=== PATIENT | male | born 1970 | race Caucasian/White ===

== ENCOUNTER 2016-07-13 22:37 | Emergency (ER) | payer MEDICAID, OTHER ==
[2016-07-13] MEDS ORDERED: HYDROmorphone HCL 1 MG/ML SYRINGE (J1170) As Ordered ONE (22:57)
[2016-07-13] MEDS ORDERED: ONDANSETRON 4MG/2ML VIAL (J2405) As Ordered ONE (22:57)
[2016-07-13 23:27] LABS: BASO # 0.2 K/mm3 (0.0-0.2); BASO % 1.1 % (0.0-1.0); EOS # 0.4 K/mm3 (0.0-0.50); EOS % 2.1 % (0.0-3.0); LARGE UNSTAINED CELL # 0.2 K/mm3 (0.0-0.4); LARGE UNSTAINED CELL % 0.9 % (0.0-4.0); LYMPH % 4.8 % (24.0-44.0); MEAN CORPUSCULAR HEMOGLOBIN 28.9 pg (27.0-33.0); MEAN CORPUSCULAR HGB CONC 34.2 g/dl (32.0-36.5); MEAN CORPUSCULAR VOLUME 84.5 fl (80.0-96.0); MONO # 0.8 K/mm3 (0.0-0.8); MONO % 4.7 % (0.0-5.0); NEUTROPHILS # 15.4 K/mm3 (1.8-7.7); NEUTROPHILS % 86.3 % (36.0-66.0); PLATELET COUNT, AUTOMATED 249 k/mm3 (150-450); RED CELL DISTRIBUTION WIDTH 14.1 % (11.5-14.5); WHITE BLOOD COUNT 17.8 K/mm3 (4.0-10.0)
[2016-07-13 23:42] LABS: ANION GAP 9 MEQ/L (8-16); BLOOD UREA NITROGEN 28 MG/DL (7-18); CALCIUM LEVEL 8.2 MG/DL (8.5-10.1); CARBON DIOXIDE LEVEL 28 MEQ/L (21-32); CHLORIDE LEVEL 101 MEQ/L (98-107); CREATININE FOR GFR 1.21 MG/DL (0.70-1.30); GLOMERULAR FILTRATION RATE > 60.0 (>60); GLUCOSE, FASTING 122 MG/DL (70-105); POTASSIUM SERUM 3.8 MEQ/L (3.5-5.1); SODIUM LEVEL 138 MEQ/L (136-145)
[2016-07-13 23:44] LABS: ALBUMIN 3.7 GM/DL (3.2-5.2); ALBUMIN/GLOBULIN RATIO 0.97 (1.00-1.93); BILIRUBIN,DIRECT 0.2 MG/DL (0.0-0.2); BILIRUBIN,TOTAL 0.5 MG/DL (0.2-1.0); TOTAL PROTEIN 7.5 GM/DL (6.4-8.2)
--- NOTE | 2016-07-13 23:50 | REPUSA ---
CLINICAL HISTORY: Abdominal pain TECHNIQUE: CT of the abdomen and pelvis was performed without intravenous contrast by obtaining yvrose guous CT axial slices from level of the heart to the proximal femoral diaphyses. Multiplanar reformat s were obtained in the coronal and sagittal projections. COMPARISON: None FINDINGS : LOWER CHEST: The lung bases demonstrate lingular atelectasis otherwise are unremarkable. Heart is nor mal in size. No pleural or pericardial effusion is seen. LIVER: The liver is normal in size and contour. BILIARY SYSTEM: No intrahepatic biliary ductal dilatation is seen. The common duct is normal in calib er. The gallbladder is unremarkable with no focal or diffuse wall thickening seen. No pericholecystic fluid is seen. No calcified biliary calculi are identified. PANCREAS: The pancreas is normal in size, contour and density. No suspicious cystic lesion or ductal dilatation. SPLEEN: Normal in size with no suspicious cystic lesion. ADRENALS: The adrenal glands are unremarkable. KIDNEYS/URETERS: The kidneys are normal in size. No calcified renal or ureteral calculi are seen. No suspicious cystic lesion or hydronephrosis. The ureters are not dilated. URINARY BLADDER: The urinary bladder is unremarkable without calcified stone, wall thickening or dive rticula seen. PROSTATE/SEMINAL VESICLES: Prostate measures 3.7 x 4.1 cm. Seminal vesicles unremarkable. AORTA AND ILIAC ARTERIES: No aneurysmal dilatation of the aorta or iliac arteries is seen. LYMPH NODES: No enlarged adenopathy. Lower mesentery calcified nodule likely postinflammatory node or granulomatous. GASTROINTESTINAL: Stomach, duodenum and bowel normal in caliber with no abnormal dilatation, stenosis , or wall thickening. PERITONEUM/RETROPERITONEUM: No ascites or suspicious fluid collection, extraluminal air, or suspiciou s mass. ABDOMINAL/PELVIC WALL: No hernia is identified. OSSEOUS STRUCTURES/SOFT TISSUES: No suspicious osseous lesion, acute fracture, or soft tissue abnorma lity. IMPRESSION : Mild prostatomegaly otherwise no acute intra-abdominal pelvic abnormality identified
[2016-07-14] MEDS ORDERED: KETOROLAC 30 MG/ML VIAL (J1885) As Ordered ONE (00:32)
[2016-07-14] MEDS ORDERED: CYCLOBENZAPRINE 10 MG TAB As Ordered ONE (01:34)
--- NOTE | 2016-07-14 01:44 | EDDOCDS ---
Nurse's Notes [facility] Name: Stef Lugo Age: 45 yrs Sex: Male : 1970 Arrival Date: 07/13/2016 Time: 22:37 Bed 18 Private MD: Giorgio Tam H Diagnosis: Abdominal and pelvic pain Presentation: 07/13 22:44 Presenting complaint: EMS states: sharp pain to left lower quadrant, +n/v. pain af2 aggravated by movement. started yesterday. Adult Sepsis Screening: The patient does not have new or worsening altered mentation. Patient has a respiratory rate of greater than or equal to 22 (1 point). Systolic blood pressure is greater than 100. Patient has a qSOFA score of 1- Negative Sepsis Screen. Suicide/Homicide risk assessment- the patient denies having any suicidal and/or homicidal ideations and does not present with any other emotional, behavioral or mental health complaints. Status: Patient is not a administrative services specialist or dependent. Transition of care: patient was not received from another setting of care. 22:44 Acuity: SUSANA Level 2 af2 22:44 Method Of Arrival: Ambulance af2 Triage Assessment: 22:55 General: Appears in no apparent distress, Behavior is cooperative. Pain: Location: af2 abdomen Pain currently is 6 out of 10 on a pain scale. Pt Declines HIV testing. Respiratory: Airway is patent Respiratory effort is even, unlabored. GI: Abdomen is non- distended obese, Bowel sounds present X 4 quads. Reports lower abdominal pain, nausea, vomiting. Derm: Skin is normal. Historical: - Allergies: Indomethacin (Vomit, Hives); cortisone injection (Hives, Anaphylaxis); PENICILLINS (Hives, Anaphylaxis); - Home Meds: 1. albuterol sulfate 90 mcg/actuation Inhl HFAA every 4 hours 2. albuterol sulfate 2.5 mg /3 mL (0.083 %) Nebulizer nebu 3 mL every 6 hours 3. allopurinol 300 mg Oral tab once daily 4. amlodipine 10 mg Oral tab 1 tab once daily 5. beclomethasone dipropionate 80 mcg/actuation inhalation aero 2 puffs 2 times per day 6. Calcium + Vitamin D Oral 600 mg daily 7. epinephrine 0.3 mg/0.3 mL (1:1,000) injection atIn 8. tiotropium bromide inhalation 2 puffs once daily 9. spironolactone 100 mg Oral tab 1 tab once daily 10. Symbicort 160-4.5 mcg/actuation inhalation HFAA 2 puffs 2 times per day 11. prednisone 2.5 mg Oral tab 1 tab once daily 12. potassium chloride 10 mEq Oral cpER 1 cap once daily 13. [place] 5-325 mg Oral tab every 4 hours 14. montelukast 10 mg oral tab once daily 15. loratadine 10 mg Oral tab - PMHx: Asthma; Gout; Hypertension; - PSHx: Tonsillectomy; right shoulder surgery; left knee bilateral release of patella; - Social history: Smoking status: Chewing Tobacco No barriers to communication noted, The patient speaks fluent P[place]. - Family history: Not pertinent. - : The pt / caregiver states he / she is not on anticoagulants. Home medication list is obtained from the patient. - Exposure Risk Screening:: None identified. Screenin/12 01:27 Screening information is obtained from the patient. Fall risk: No risks identified. af2 Assistance ADL's: requires no assistance with activities of daily living. Abuse/DV Screen: The patient / caregiver reports he/she is: not in a situation that causes fear, pain or injury. Nutritional screening: No deficits noted. Advance Directives: There is no active DNR order. home support is adequate. Assessment: 07/13 23:03 General: Appears in no apparent distress, Behavior is appropriate for age, cooperative. af2 Neurological: Level of Consciousness is awake, alert, Oriented to person, place, time. GI: Abdomen is obese, Abd is soft and non tender X 4 quads. GI: Reports Pain is 6 out of 10 on a pain scale. : No deficits noted. 07/14 00:00 General: Appears in no apparent distress, Behavior is appropriate for age, cooperative, af2 pt resting quietly on stretcher with eyes closed.. Respiratory: Airway is patent Respiratory effort is even, unlabored. GI: Reports lower abdominal pain. Derm: Skin is normal. 01:26 General: Appears in no apparent distress, Behavior is appropriate for age, cooperative. af2 Neurological: Level of Consciousness is awake, alert, Oriented to person, place, time. Respiratory: Airway is patent Respiratory effort is even, unlabored. Derm: Skin is normal. 01:43 GI: No deficits noted. af2 Vital Signs: 07/13 22:43 BP 154 / 98 RA Sitting (auto/reg); Pulse 121 MON; Resp 24 S; Temp 98.8(TE); Pulse Ox cln 95% on R/A; Weight 140.61 kg (R); Height 6 ft. 3 in. (190.50 cm) (R); Pain 03/12; 07/14 01:16 BP 124 / 86; Pulse 107; Resp 20; Temp 98.9(TE); Pulse Ox 95% on R/A; Pain 07/12; jade 07/13 22:43 Body Mass Index 38.75 (140.61 kg, 190.50 cm) cln Vitals: 01:43 Log In Time N/A - ambulance arrival. af2 ED Course: 07/13 22:37 Patient visited by Dean Grady, Knifer Up. ml3 22:37 Patient moved to Waiting ml3 22:38 Giorgio Tam is Private Physician. ml3 22:38 Bronwyn Joshi RN is Primary Nurse. ml3 22:38 Michelle Purcell RN is Primary Nurse. ml3 22:38 Maricruz Dalal MD is Attending Physician. fg 22:38 Patient visited by Maricruz Dalal MD. fg 22:38 Patient moved to 18 ml3 22:44 Patient visited by Judit Tse PCA. cln 22:44 Pt greeted and oriented to ED. Patient advised of names of staff involved in care, cln location of call fink, wait times and NPO status. Accompanied by Significant Other, Patient has correct armband on for positive identification. Placed in gown. Bed in low position. Call light in reach. Side rails up X 1. 22:46 Patient visited by Michelle Purcell RN. af2 22:46 Triage Initiated af2 22:55 CBC with Diff Sent. af2 22:55 Basic Metabolic Profile Sent. af2 22:55 Liver Profile Sent. af2 22:56 Lipase Sent. af2 22:57 Primary Nurse role handed off by Bronwyn Joshi,SHAUN rs6 23:04 Patient visited by Michelle Purcell RN. af2 23:12 Urine Culture Sent. cln 07/14 00:17 Patient visited by Judit Tse PCA. cln 00:28 The patient / caregiver is instructed regarding the plan of care and ED course. Cardiac af2 monitor on. Pulse ox on. NIBP on. 00:40 CT ABD & PELVIS W/O CONTRAST Returned. EDMS 00:48 Patient visited by Michelle Purcell RN. af2 01:12 Giorgio Tam is Referral Physician. fg 01:16 Patient visited by Mague Mike PCA. jade 01:23 [facility] Payment Agreement was scanned into Flow[employer] and attached to record. hs2 01:26 EKG done. (by ED staff). Reviewed by Maricruz Dalal MD. jade 01:27 Patient visited by Mague Mike PCA. jade 01:27 Maintain field IV. Dressing intact. Good blood return noted. Site clean & dry. Gauge & af2 site: #20G to left hand. No procedures done that require assistance. 01:28 Patient visited by Michelle Purcell RN. af2 01:43 Discontinued IV lock intact, bleeding controlled, pressure dressing applied, No af2 redness/swelling at site. Administered Medications: 07/13 23:02 Drug: Dilaudid - HYDROmorphone 1 mg [hydromorphone 1 mg/mL injection syringe (1 mL)] af2 Route: IVP; Site: left hand; 23:02 Drug: Ondansetron 4 mg [ondansetron HCl 2 mg/mL intravenous solution (2 mL)] Route: af2 IVP; Site: left hand; 23:02 Drug: NS 0.9% 1000 ml [sodium chloride 0.9 % intravenous solution] Route: IV; Rate: af2 bolus; Site: left hand; 07/14 00:35 Drug: ketorolac 30 mg [ketorolac 30 mg/mL (1 mL) injection solution (1 mL)] Route: IVP; af2 Site: left hand; 01:41 Drug: Cyclobenzaprine 10 mg [cyclobenzaprine 10 mg tablet (1 tabs)] Route: PO; af2 Order Results: Lab Order: Basic Metabolic Profile; SPEC'M 07/13/16 23:11 Test: GLUCOSE, FASTING; Value: 122; Range: 70-105; Abnormal: Above high normal; Units: MG/DL; Status: F Test: BLOOD UREA NITROGEN; Value: 28; Range: 7-18; Abnormal: Above high normal; Units: MG/DL; Status: F Test: CREATININE FOR GFR; Value: 1.21; Range: 0.70-1.30; Units: MG/DL; Status: F Test: GLOMERULAR FILTRATION RATE; Value: > 60.0; Range: >60; Status: F Test: SODIUM LEVEL; Value: 138; Range: 136-145; Units: MEQ/L; Status: F Test: POTASSIUM SERUM; Value: 3.8; Range: 3.5-5.1; Units: MEQ/L; Status: F Test: CHLORIDE LEVEL; Value: 101; Range: 98-107; Units: MEQ/L; Status: F Test: CARBON DIOXIDE LEVEL; Value: 28; Range: 21-32; Units: MEQ/L; Status: F Test: ANION GAP; Value: 9; Range: 8-16; Units: MEQ/L; Status: F Test: CALCIUM LEVEL; Value: 8.2; Range: 8.5-10.1; Abnormal: Below low normal; Units: MG/DL; Status: F Test Note: ; Units are mL/min/1.73 m2 Chronic Kidney Disease Staging per NKF: Stage I & II GFR >=60 Normal to Mildly Decreased Stage III GFR 30-59 Moderately Decreased Stage IV GFR 15-29 Severely Decreased Stage V GFR <15 Very Little GFR Left ESRD GFR <15 on WATER CHEMIST Lab Order: CBC with Diff; SPEC'M 07/13/16 23:11 Test: WHITE BLOOD COUNT; Value: 17.8; Range: 4.0-10.0; Abnormal: Above high normal; Units: K/mm3; Status: F Test: RED BLOOD COUNT; Value: 5.74; Range: 4.30-6.10; Units: M/mm3; Status: F Test: HEMOGLOBIN; Value: 16.6; Range: 14.0-18.0; Units: g/dl; Status: F Test: HEMATOCRIT; Value: 48.5; Range: 42.0-52.0; Units: %; Status: F Test: MEAN CORPUSCULAR VOLUME; Value: 84.5; Range: 80.0-96.0; Units: fl; Status: F Test: MEAN CORPUSCULAR HEMOGLOBIN; Value: 28.9; Range: 27.0-33.0; Units: pg; Status: F Test: MEAN CORPUSCULAR HGB CONC; Value: 34.2; Range: 32.0-36.5; Units: g/dl; Status: F Test: RED CELL DISTRIBUTION WIDTH; Value: 14.1; Range: 11.5-14.5; Units: %; Status: F Test: PLATELET COUNT, AUTOMATED; Value: 249; Range: 150-450; Units: k/mm3; Status: F Test: NEUTROPHILS %; Value: 86.3; Range: 36.0-66.0; Abnormal: Above high normal; Units: %; Status: F Test: LYMPH %; Value: 4.8; Range: 24.0-44.0; Abnormal: Below low normal; Units: %; Status: F Test: MONO %; Value: 4.7; Range: 0.0-5.0; Units: %; Status: F Test: EOS %; Value: 2.1; Range: 0.0-3.0; Units: %; Status: F Test: BASO %; Value: 1.1; Range: 0.0-1.0; Abnormal: Above high normal; Units: %; Status: F Test: LARGE UNSTAINED CELL %; Value: 0.9; Range: 0.0-4.0; Units: %; Status: F Test: NEUTROPHILS #; Value: 15.4; Range: 1.8-7.7; Abnormal: Above high normal; Units: K/mm3; Status: F Test: LYMPH #; Value: 1.0; Range: 1.5-4.5; Abnormal: Below low normal; Units: K/mm3; Status: F Test: MONO #; Value: 0.8; Range: 0.0-0.8; Units: K/mm3; Status: F Test: EOS #; Value: 0.4; Range: 0.0-0.50; Units: K/mm3; Status: F Test: BASO #; Value: 0.2; Range: 0.0-0.2; Units: K/mm3; Status: F Test: LARGE UNSTAINED CELL #; Value: 0.2; Range: 0.0-0.4; Units: K/mm3; Status: F Lab Order: Urinalysis; SPEC'M 07/14/16 00:29 Test: APPEARANCE, URINE; Value: CLEAR; Range: CLEAR; Status: F Test: COLOR, URINE; Value: YELLOW; Range: YELLOW; Status: F Test: PH,URINE; Value: 5.0; Range: 5.0-9.0; Units: UNITS; Status: F Test: SPECIFIC GRAVITY URINE AUTO; Value: 1.027; Range: 1.002-1.035; Status: F Test: PROTEIN, URINE AUTO; Value: 1+; Range: NEGATIVE; Abnormal: Above high normal; Units: mg/dL; Status: F Test: GLUCOSE, URINE (UA) AUTO; Value: NEGATIVE; Range: NEGATIVE; Units: mg/dL; Status: F Test: KETONE, URINE AUTO; Value: TRACE; Range: NEGATIVE; Abnormal: Above high normal; Units: mg/dL; Status: F Test: UROBILINOGEN, URINE AUTO; Value: 0.2; Range: 0.0-2.0; Units: mg/dL; Status: F Test: BILIRUBIN, URINE AUTO; Value: NEGATIVE; Range: NEGATIVE; Status: F Test: NITRITE, URINE AUTO; Value: NEGATIVE; Range: NEGATIVE; Status: F Test: LEUKOCYTE ESTERASE, URINE AUTO; Value: NEGATIVE; Range: NEGATIVE; Status: F Test: BLOOD, URINE BLOOD; Value: NEGATIVE; Range: NEGATIVE; Status: F Test: WBC, URINE AUTO; Value: 1; Range: 0-3; Units: /HPF; Status: F Test: RBC, URINE AUTO; Value: 1; Range: 0-3; Units: /HPF; Status: F Test: BACTERIA, URINE AUTO; Value: NEGATIVE; Range: NEGATIVE; Status: F Test: SQUAMOUS EPITHELIAL CELL UR AU; Value: 0; Range: 0-6; Units: /HPF; Status: F Test: MUCUS, URINE; Value: SMALL; Range: NEGATIVE; Status: F Test: HYALINE CAST, URINE AUTO; Value: 0; Range: 0-1; Units: /LPF; Status: F Lab Order: Liver Profile; SPEC'M 07/13/16 23:11 Test: AST/SGOT; Value: 20; Range: 15-37; Units: U/L; Status: F Test: ALT/SGPT; Value: 24; Range: 12-78; Units: U/L; Status: F Test: ALKALINE PHOSPHATASE; Value: 79; Range: 45-117; Units: U/L; Status: F Test: BILIRUBIN,TOTAL; Value: 0.5; Range: 0.2-1.0; Units: MG/DL; Status: F Test: BILIRUBIN,DIRECT; Value: 0.2; Range: 0.0-0.2; Units: MG/DL; Status: F Test: TOTAL PROTEIN; Value: 7.5; Range: 6.4-8.2; Units: GM/DL; Status: F Test: ALBUMIN; Value: 3.7; Range: 3.2-5.2; Units: GM/DL; Status: F Test: ALBUMIN/GLOBULIN RATIO; Value: 0.97; Range: 1.00-1.93; Abnormal: Below low normal; Status: F Lab Order: Lipase; SPEC'M 07/13/16 23:11 Test: LIPASE; Value: 135; Range: 73-393; Units: U/L; Status: F Radiology Order: CT ABD & PELVIS W/O CONTRAST Test: CT ABD & PELVIS W/O CONTRAST REASON FOR EXAMINATION: l flank pain l abdominal pain; ; CLINICAL HISTORY: Abdominal pain; TECHNIQUE: CT of the abdomen and pelvis was performed without intravenous contrast by obtaining yvrose; guous CT axial slices from level of the heart to the proximal femoral diaphyses. Multiplanar reformat; s were obtained in the coronal and sagittal projections.; COMPARISON: None; FINDINGS :; LOWER CHEST: The lung bases demonstrate lingular atelectasis otherwise are unremarkable. Heart is nor; mal in size. No pleural or pericardial effusion is seen.; LIVER: The liver is normal in size and contour.; BILIARY SYSTEM: No intrahepatic biliary ductal dilatation is seen. The common duct is normal in calib; er. The gallbladder is unremarkable with no focal or diffuse wall thickening seen. No pericholecystic; fluid is seen. No calcified biliary calculi are identified.; PANCREAS: The pancreas is normal in size, contour and density. No suspicious cystic lesion or ductal; dilatation.; SPLEEN: Normal in size with no suspicious cystic lesion.; ADRENALS: The adrenal glands are unremarkable.; KIDNEYS/URETERS: The kidneys are normal in size. No calcified renal or ureteral calculi are seen. No; suspicious cystic lesion or hydronephrosis. The ureters are not dilated.; URINARY BLADDER: The urinary bladder is unremarkable without calcified stone, wall thickening or dive; rticula seen.; PROSTATE/SEMINAL VESICLES: Prostate measures 3.7 x 4.1 cm. Seminal vesicles unremarkable.; AORTA AND ILIAC ARTERIES: No aneurysmal dilatation of the aorta or iliac arteries is seen.; LYMPH NODES: No enlarged adenopathy. Lower mesentery calcified nodule likely postinflammatory node or; granulomatous.; GASTROINTESTINAL: Stomach, duodenum and bowel normal in caliber with no abnormal dilatation, stenosis; , or wall thickening.; PERITONEUM/RETROPERITONEUM: No ascites or suspicious fluid collection, extraluminal air, or suspiciou; s mass.; ABDOMINAL/PELVIC WALL: No hernia is identified.; OSSEOUS STRUCTURES/SOFT TISSUES: No suspicious osseous lesion, acute fracture, or soft tissue abnorma; lity.; IMPRESSION :; Mild prostatomegaly otherwise no acute intra-abdominal pelvic abnormality identified; ; Outcome: 01:12 Discharge ordered by Provider. fg 01:43 Discharge Assessment: Patient awake, alert and oriented x 3. No cognitive and/or af2 functional deficits noted. Patient verbalized understanding of disposition instructions. patient administered narcotics - no. The following High Risk Discharge criteria are identified: None. Discharged to home ambulatory. Condition: stable. Discharge instructions given to patient, Instructed on discharge instructions, follow up and referral plans. Demonstrated understanding of instructions, Pt was receptive of discharge instructions/ teaching. CT Study completed. Property :Personal belongings accompany Pt. 01:44 Patient left the ED. af2 Signatures: Dispatcher [employer] EDMS Dean Grady, Knifer Up Unit ml3 Mague Mike, ASSOCIATE MANAGER AFFILIATE MARKETING ASSOCIATE MANAGER AFFILIATE MARKETING jade Sheron Ponce, ASSOCIATE MANAGER AFFILIATE MARKETING ASSOCIATE MANAGER AFFILIATE MARKETING rs6 Michelle Purcell,RN RN af2 Maricruz Dalal MD MD fg Ita Medley, Reg Reg hs2 Judit Tse, ASSOCIATE MANAGER AFFILIATE MARKETING ASSOCIATE MANAGER AFFILIATE MARKETING cln MTDD
--- NOTE | 2016-07-14 01:44 | EDDOCDS ---
Physician Documentation [facility] Name: Stef Lugo Age: 45 yrs Sex: Male : 1970 Arrival Date: 07/13/2016 Time: 22:37 Bed 18 Private MD: Giorgio Tam H Disposition: 07/14/16 01:12 Discharged to Home/Self Care. Impression: Abdominal and pelvic pain. - Condition is Stable. - Discharge Instructions: Abdominal Pain, Adult. - Medication Reconciliation, Local Pharmacy Hours form. - Follow up: Giorgio Tam; When: Call to arrange an appointment; Reason: Continuance of care. - Problem is new. - Symptoms have improved. - Notes: As discussed[facility] 12-24 hours for repeat abdominal examination. Though your CT and lab work were not indiciative that you need emergency surgery, we want to make sure you have close follow up for your condition. Please follow up for a repeat urinalysis as we found you have protein in your urine. Hope you are feeling better soon. Historical: - Allergies: Indomethacin (Vomit, Hives); cortisone injection (Hives, Anaphylaxis); PENICILLINS (Hives, Anaphylaxis); - Home Meds: 1. albuterol sulfate 90 mcg/actuation Inhl HFAA every 4 hours 2. albuterol sulfate 2.5 mg /3 mL (0.083 %) Nebulizer nebu 3 mL every 6 hours 3. allopurinol 300 mg Oral tab once daily 4. amlodipine 10 mg Oral tab 1 tab once daily 5. beclomethasone dipropionate 80 mcg/actuation inhalation aero 2 puffs 2 times per day 6. Calcium + Vitamin D Oral 600 mg daily 7. epinephrine 0.3 mg/0.3 mL (1:1,000) injection atIn 8. tiotropium bromide inhalation 2 puffs once daily 9. spironolactone 100 mg Oral tab 1 tab once daily 10. Symbicort 160-4.5 mcg/actuation inhalation HFAA 2 puffs 2 times per day 11. prednisone 2.5 mg Oral tab 1 tab once daily 12. potassium chloride 10 mEq Oral cpER 1 cap once daily 13. [place] 5-325 mg Oral tab every 4 hours 14. montelukast 10 mg oral tab once daily 15. loratadine 10 mg Oral tab - PMHx: Asthma; Gout; Hypertension; - PSHx: Tonsillectomy; right shoulder surgery; left knee bilateral release of patella; - Social history: Smoking status: Chewing Tobacco No barriers to communication noted, The patient speaks fluent Togolese. - Family history: Not pertinent. - : The pt / caregiver states he / she is not on anticoagulants. Home medication list is obtained from the patient. - Exposure Risk Screening:: None identified. Vital Signs: 07/13 22:43 BP 154 / 98 RA Sitting (auto/reg); Pulse 121 MON; Resp 24 S; Temp 98.8(TE); Pulse Ox cln 95% on R/A; Weight 140.61 kg / 309.99 lbs (R); Height 6 ft. 3 in. (190.50 cm) (R); Pain 03/12; 07/14 01:16 BP 124 / 86; Pulse 107; Resp 20; Temp 98.9(TE); Pulse Ox 95% on R/A; Pain 07/12; jade 07/13 22:43 Body Mass Index 38.75 (140.61 kg, 190.50 cm) cln MDM: 07/13 22:48 Dilaudid - HYDROmorphone 1 mg IVP once ordered. fg 22:48 Ondansetron 4 mg IVP once ordered. fg 22:48 IV Saline Lock ordered. fg 22:49 Basic Metabolic Profile Ordered. EDMS 22:49 CBC with Diff Ordered. EDMS 22:49 Urinalysis Ordered. EDMS 22:50 Liver Profile Ordered. EDMS 22:50 Lipase Ordered. EDMS 22:57 NS 0.9% 1000 ml IV at bolus once ordered. fg 22:57 Urine Culture Ordered. EDMS 23:09 CT ABD & PELVIS W/O CONTRAST Ordered. EDMS 07/14 00:08 ketorolac 30 mg IVP once ordered. fg 00:41 Financial registration complete. hs2 01:15 Cyclobenzaprine 10 mg PO once ordered. fg 01:23 ECG WITH READING ER PHYS+CARDIAG ordered. EDMS 01:23 [facility] Payment Agreement was scanned into [employer] and attached to record. hs2 Administered Medications: 07/13 23:02 Drug: Dilaudid - HYDROmorphone 1 mg [hydromorphone 1 mg/mL injection syringe (1 mL)] af2 Route: IVP; Site: left hand; 23:02 Drug: Ondansetron 4 mg [ondansetron HCl 2 mg/mL intravenous solution (2 mL)] Route: af2 IVP; Site: left hand; 23:02 Drug: NS 0.9% 1000 ml [sodium chloride 0.9 % intravenous solution] Route: IV; Rate: af2 bolus; Site: left hand; 07/14 00:35 Drug: ketorolac 30 mg [ketorolac 30 mg/mL (1 mL) injection solution (1 mL)] Route: IVP; af2 Site: left hand; 01:41 Drug: Cyclobenzaprine 10 mg [cyclobenzaprine 10 mg tablet (1 tabs)] Route: PO; af2 Signatures: Dispatcher [employer] EDMichelle Samano,RN RN af2 Maricruz Dalal MD MD fg Stanton, Hillary, Reg Reg hs2 The chart was reviewed and I authenticate all verbal orders and agree with the evaluation and treatment provided.Corrections: (The following items were deleted from the chart) 07/13 23:09 22:49 CT Abdomen without contrast+CT ordered. EDMS EDMS Attachments: 07/14 01:23 [facility] [place] Payment Agreement hs2 MTDD
--- NOTE | 2016-07-15 07:19 | ECGEPIP ---
Stationary ECG Study [facility] - ED Test Date: 2016-07-14 Pat Name: DINESH CAMARILLO Department: Room: - Gender: M Photographer: fabiana : 1970 Requested By: RODRIGO Mendenhall Order Number: [id number] Reading MD: Ilda Llanos Measurements Intervals [place] Rate: 107 P: 43 MN: 141 QRS: 95 QRSD: 113 T: 35 QT: 346 QTc: 462 Interpretive Statements SINUS TACHYCARDIA BORDERLINE RIGHT AXIS DEVIATION POSSIBLE LATERAL MYOCARDIAL INFARCTION, PROBABLY OLD POSSIBLE INFERIOR MYOCARDIAL INFARCTION, PROBABLY OLD ABNORMAL RHYTHM ECG INCREASED RATE 04/01/16 Electronically Signed On 07-15-2016 7:19:04 EST by Ilda Llanos
--- NOTE | 2016-07-16 02:45 | EDDOCDS ---
Physician Documentation [facility] Name: Stef Lugo Age: 45 yrs Sex: Male : 1970 Arrival Date: 07/13/2016 Time: 22:37 Bed 18 Private MD: Giorgio Tam H Disposition: 07/14/16 01:12 Discharged to Home/Self Care. Impression: Abdominal and pelvic pain. - Condition is Stable. - Discharge Instructions: Abdominal Pain, Adult. - Medication Reconciliation, Local Pharmacy Hours form. - Follow up: Giorgio Tam; When: Call to arrange an appointment; Reason: Continuance of care. - Problem is new. - Symptoms have improved. - Notes: As discussed[facility] 12-24 hours for repeat abdominal examination. Though your CT and lab work were not indiciative that you need emergency surgery, we want to make sure you have close follow up for your condition. Please follow up for a repeat urinalysis as we found you have protein in your urine. Hope you are feeling better soon. Historical: - Allergies: Indomethacin (Vomit, Hives); cortisone injection (Hives, Anaphylaxis); PENICILLINS (Hives, Anaphylaxis); - Home Meds: 1. albuterol sulfate 90 mcg/actuation Inhl HFAA every 4 hours 2. albuterol sulfate 2.5 mg /3 mL (0.083 %) Nebulizer nebu 3 mL every 6 hours 3. allopurinol 300 mg Oral tab once daily 4. amlodipine 10 mg Oral tab 1 tab once daily 5. beclomethasone dipropionate 80 mcg/actuation inhalation aero 2 puffs 2 times per day 6. Calcium + Vitamin D Oral 600 mg daily 7. epinephrine 0.3 mg/0.3 mL (1:1,000) injection atIn 8. tiotropium bromide inhalation 2 puffs once daily 9. spironolactone 100 mg Oral tab 1 tab once daily 10. Symbicort 160-4.5 mcg/actuation inhalation HFAA 2 puffs 2 times per day 11. prednisone 2.5 mg Oral tab 1 tab once daily 12. potassium chloride 10 mEq Oral cpER 1 cap once daily 13. [place] 5-325 mg Oral tab every 4 hours 14. montelukast 10 mg oral tab once daily 15. loratadine 10 mg Oral tab - PMHx: Asthma; Gout; Hypertension; - PSHx: Tonsillectomy; right shoulder surgery; left knee bilateral release of patella; - Social history: Smoking status: Chewing Tobacco No barriers to communication noted, The patient speaks fluent Tanzanian. - Family history: Not pertinent. - : The pt / caregiver states he / she is not on anticoagulants. Home medication list is obtained from the patient. - Exposure Risk Screening:: None identified. Vital Signs: 07/13 22:43 BP 154 / 98 RA Sitting (auto/reg); Pulse 121 MON; Resp 24 S; Temp 98.8(TE); Pulse Ox cln 95% on R/A; Weight 140.61 kg / 309.99 lbs (R); Height 6 ft. 3 in. (190.50 cm) (R); Pain 03/12; 07/14 01:16 BP 124 / 86; Pulse 107; Resp 20; Temp 98.9(TE); Pulse Ox 95% on R/A; Pain 07/12; jade 07/13 22:43 Body Mass Index 38.75 (140.61 kg, 190.50 cm) cln MDM: 07/13 22:48 Dilaudid - HYDROmorphone 1 mg IVP once ordered. fg 22:48 Ondansetron 4 mg IVP once ordered. fg 22:48 IV Saline Lock ordered. fg 22:49 Basic Metabolic Profile Ordered. EDMS 22:49 CBC with Diff Ordered. EDMS 22:49 Urinalysis Ordered. EDMS 22:50 Liver Profile Ordered. EDMS 22:50 Lipase Ordered. EDMS 22:57 NS 0.9% 1000 ml IV at bolus once ordered. fg 22:57 Urine Culture Ordered. EDMS 23:09 CT ABD & PELVIS W/O CONTRAST Ordered. EDMS 07/14 00:08 ketorolac 30 mg IVP once ordered. fg 00:41 Financial registration complete. hs2 01:15 Cyclobenzaprine 10 mg PO once ordered. fg 01:23 ECG WITH READING ER PHYS+CARDIAG ordered. EDMS 01:23 [facility] Payment Agreement was scanned into [employer] and attached to record. hs2 10:49 T-Sheet-- Draft Copy was scanned into [employer] and attached to record. gb 10:50 ECG/EKG was scanned into [employer] and attached to record. gb 10:50 Radiology Report was scanned into [employer] and attached to record. gb Administered Medications: 07/13 23:02 Drug: Dilaudid - HYDROmorphone 1 mg [hydromorphone 1 mg/mL injection syringe (1 mL)] af2 Route: IVP; Site: left hand; 23:02 Drug: Ondansetron 4 mg [ondansetron HCl 2 mg/mL intravenous solution (2 mL)] Route: af2 IVP; Site: left hand; 23:02 Drug: NS 0.9% 1000 ml [sodium chloride 0.9 % intravenous solution] Route: IV; Rate: af2 bolus; Site: left hand; 07/14 00:35 Drug: ketorolac 30 mg [ketorolac 30 mg/mL (1 mL) injection solution (1 mL)] Route: IVP; af2 Site: left hand; 01:41 Drug: Cyclobenzaprine 10 mg [cyclobenzaprine 10 mg tablet (1 tabs)] Route: PO; af2 Signatures: Dispatcher [employer] EDMS Cyn Dowell, Reg Reg gb Michelle Purcell RN RN af2 Maricruz Dalal MD MD Ita Medley, Reg Reg hs2 The chart was reviewed and I authenticate all verbal orders and agree with the evaluation and treatment provided.Corrections: (The following items were deleted from the chart) 07/13 23:09 22:49 CT Abdomen without contrast+CT ordered. EDOH EDOH Attachments: 07/14 01:23 [facility] [place] hs2 10:49 T-Sheet-- Draft Copy gb 10:50 ECG/EKG gb Chart Complete MTDD
--- NOTE | 2016-07-16 02:45 | EDDOCDS ---
Nurse's Notes [facility] Name: Stef Lugo Age: 45 yrs Sex: Male : 1970 Arrival Date: 07/13/2016 Time: 22:37 Bed 18 Private MD: Giorgio Tam H Diagnosis: Abdominal and pelvic pain Presentation: 07/13 22:44 Presenting complaint: EMS states: sharp pain to left lower quadrant, +n/v. pain af2 aggravated by movement. started yesterday. Adult Sepsis Screening: The patient does not have new or worsening altered mentation. Patient has a respiratory rate of greater than or equal to 22 (1 point). Systolic blood pressure is greater than 100. Patient has a qSOFA score of 1- Negative Sepsis Screen. Suicide/Homicide risk assessment- the patient denies having any suicidal and/or homicidal ideations and does not present with any other emotional, behavioral or mental health complaints. 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 Transition of care: patient was not received from another setting of care. 22:44 Acuity: SUSANA Level 2 af2 22:44 Method Of Arrival: Ambulance af2 Triage Assessment: 22:55 General: Appears in no apparent distress, Behavior is cooperative. Pain: Location: af2 abdomen Pain currently is 6 out of 10 on a pain scale. Pt Declines HIV testing. Respiratory: Airway is patent Respiratory effort is even, unlabored. GI: Abdomen is non- distended obese, Bowel sounds present X 4 quads. Reports lower abdominal pain, nausea, vomiting. Derm: Skin is normal. Historical: - Allergies: Indomethacin (Vomit, Hives); cortisone injection (Hives, Anaphylaxis); PENICILLINS (Hives, Anaphylaxis); - Home Meds: 1. albuterol sulfate 90 mcg/actuation Inhl HFAA every 4 hours 2. albuterol sulfate 2.5 mg /3 mL (0.083 %) Nebulizer nebu 3 mL every 6 hours 3. allopurinol 300 mg Oral tab once daily 4. amlodipine 10 mg Oral tab 1 tab once daily 5. beclomethasone dipropionate 80 mcg/actuation inhalation aero 2 puffs 2 times per day 6. Calcium + Vitamin D Oral 600 mg daily 7. epinephrine 0.3 mg/0.3 mL (1:1,000) injection atIn 8. tiotropium bromide inhalation 2 puffs once daily 9. spironolactone 100 mg Oral tab 1 tab once daily 10. Symbicort 160-4.5 mcg/actuation inhalation HFAA 2 puffs 2 times per day 11. prednisone 2.5 mg Oral tab 1 tab once daily 12. potassium chloride 10 mEq Oral cpER 1 cap once daily 13. [place] 5-325 mg Oral tab every 4 hours 14. montelukast 10 mg oral tab once daily 15. loratadine 10 mg Oral tab - PMHx: Asthma; Gout; Hypertension; - PSHx: Tonsillectomy; right shoulder surgery; left knee bilateral release of patella; - Social history: Smoking status: Chewing Tobacco No barriers to communication noted, The patient speaks fluent [place]. - Family history: Not pertinent. - : The pt / caregiver states he / she is not on anticoagulants. Home medication list is obtained from the patient. - Exposure Risk Screening:: None identified. Screenin/12 01:27 Screening information is obtained from the patient. Fall risk: No risks identified. af2 Assistance ADL's: requires no assistance with activities of daily living. Abuse/DV Screen: The patient / caregiver reports he/she is: not in a situation that causes fear, pain or injury. Nutritional screening: No deficits noted. Advance Directives: There is no active DNR order. home support is adequate. Assessment: 07/13 23:03 General: Appears in no apparent distress, Behavior is appropriate for age, cooperative. af2 Neurological: Level of Consciousness is awake, alert, Oriented to person, place, time. GI: Abdomen is obese, Abd is soft and non tender X 4 quads. GI: Reports Pain is 6 out of 10 on a pain scale. : No deficits noted. 07/14 00:00 General: Appears in no apparent distress, Behavior is appropriate for age, cooperative, af2 pt resting quietly on stretcher with eyes closed.. Respiratory: Airway is patent Respiratory effort is even, unlabored. GI: Reports lower abdominal pain. Derm: Skin is normal. 01:26 General: Appears in no apparent distress, Behavior is appropriate for age, cooperative. af2 Neurological: Level of Consciousness is awake, alert, Oriented to person, place, time. Respiratory: Airway is patent Respiratory effort is even, unlabored. Derm: Skin is normal. 01:43 GI: No deficits noted. af2 Vital Signs: 07/13 22:43 BP 154 / 98 RA Sitting (auto/reg); Pulse 121 MON; Resp 24 S; Temp 98.8(TE); Pulse Ox cln 95% on R/A; Weight 140.61 kg (R); Height 6 ft. 3 in. (190.50 cm) (R); Pain 03/12; 07/14 01:16 BP 124 / 86; Pulse 107; Resp 20; Temp 98.9(TE); Pulse Ox 95% on R/A; Pain 07/12; jade 07/13 22:43 Body Mass Index 38.75 (140.61 kg, 190.50 cm) cln Vitals: 01:43 Log In Time N/A - ambulance arrival. af2 ED Course: 07/13 22:37 Patient visited by Dean Grady, Turn Out Worker. ml3 22:37 Patient moved to Waiting ml3 22:38 Giorgio Tam is Private Physician. ml3 22:38 Bronwyn Joshi RN is Primary Nurse. ml3 22:38 Michelle Purcell RN is Primary Nurse. ml3 22:38 Maricruz Dalal MD is Attending Physician. fg 22:38 Patient visited by Maricruz Dalal MD. fg 22:38 Patient moved to 18 ml3 22:44 Patient visited by Judit Tse PCA. cln 22:44 Pt greeted and oriented to ED. Patient advised of names of staff involved in care, cln location of call fink, wait times and NPO status. Accompanied by Significant Other, Patient has correct armband on for positive identification. Placed in gown. Bed in low position. Call light in reach. Side rails up X 1. 22:46 Patient visited by Michelle Purcell RN. af2 22:46 Triage Initiated af2 22:55 CBC with Diff Sent. af2 22:55 Basic Metabolic Profile Sent. af2 22:55 Liver Profile Sent. af2 22:56 Lipase Sent. af2 22:57 Primary Nurse role handed off by Bronwyn Joshi,SHAUN rs6 23:04 Patient visited by Michelle Purcell RN. af2 23:12 Urine Culture Sent. cln 07/14 00:17 Patient visited by Judit Tse PCA. cln 00:28 The patient / caregiver is instructed regarding the plan of care and ED course. Cardiac af2 monitor on. Pulse ox on. NIBP on. 00:40 CT ABD & PELVIS W/O CONTRAST Returned. EDMS 00:48 Patient visited by Michelle Purcell RN. af2 01:12 Giorgio Tam is Referral Physician. fg 01:16 Patient visited by Mague Mike PCA. jade 01:23 [facility] Payment Agreement was scanned into [employer] and attached to record. hs2 01:26 EKG done. (by ED staff). Reviewed by Maricruz Dalal MD. jade 01:27 Patient visited by Mague Mike PCA. jade 01:27 Maintain field IV. Dressing intact. Good blood return noted. Site clean & dry. Gauge & af2 site: #20G to left hand. No procedures done that require assistance. 01:28 Patient visited by Michelle Purcell RN. af2 01:43 Discontinued IV lock intact, bleeding controlled, pressure dressing applied, No af2 redness/swelling at site. 10:49 T-Sheet-- Draft Copy was scanned into [employer] and attached to record. gb 10:50 ECG/EKG was scanned into [employer] and attached to record. gb 10:50 Radiology Report was scanned into [employer] and attached to record. gb 07/15 07:41 EKG-ADULT Returned. EDMS Administered Medications: 07/13 23:02 Drug: Dilaudid - HYDROmorphone 1 mg [hydromorphone 1 mg/mL injection syringe (1 mL)] af2 Route: IVP; Site: left hand; 23:02 Drug: Ondansetron 4 mg [ondansetron HCl 2 mg/mL intravenous solution (2 mL)] Route: af2 IVP; Site: left hand; 23:02 Drug: NS 0.9% 1000 ml [sodium chloride 0.9 % intravenous solution] Route: IV; Rate: af2 bolus; Site: left hand; 07/14 00:35 Drug: ketorolac 30 mg [ketorolac 30 mg/mL (1 mL) injection solution (1 mL)] Route: IVP; af2 Site: left hand; 01:41 Drug: Cyclobenzaprine 10 mg [cyclobenzaprine 10 mg tablet (1 tabs)] Route: PO; af2 Order Results: Lab Order: Basic Metabolic Profile; SPEC'M 07/13/16 23:11 Test: GLUCOSE, FASTING; Value: 122; Range: 70-105; Abnormal: Above high normal; Units: MG/DL; Status: F Test: BLOOD UREA NITROGEN; Value: 28; Range: 7-18; Abnormal: Above high normal; Units: MG/DL; Status: F Test: CREATININE FOR GFR; Value: 1.21; Range: 0.70-1.30; Units: MG/DL; Status: F Test: GLOMERULAR FILTRATION RATE; Value: > 60.0; Range: >60; Status: F Test: SODIUM LEVEL; Value: 138; Range: 136-145; Units: MEQ/L; Status: F Test: POTASSIUM SERUM; Value: 3.8; Range: 3.5-5.1; Units: MEQ/L; Status: F Test: CHLORIDE LEVEL; Value: 101; Range: 98-107; Units: MEQ/L; Status: F Test: CARBON DIOXIDE LEVEL; Value: 28; Range: 21-32; Units: MEQ/L; Status: F Test: ANION GAP; Value: 9; Range: 8-16; Units: MEQ/L; Status: F Test: CALCIUM LEVEL; Value: 8.2; Range: 8.5-10.1; Abnormal: Below low normal; Units: MG/DL; Status: F Test Note: ; Units are mL/min/1.73 m2 Chronic Kidney Disease Staging per NKF: Stage I & II GFR >=60 Normal to Mildly Decreased Stage III GFR 30-59 Moderately Decreased Stage IV GFR 15-29 Severely Decreased Stage V GFR <15 Very Little GFR Left ESRD GFR <15 on SOIL SPECIALIST Lab Order: CBC with Diff; SPEC'M 07/13/16 23:11 Test: WHITE BLOOD COUNT; Value: 17.8; Range: 4.0-10.0; Abnormal: Above high normal; Units: K/mm3; Status: F Test: RED BLOOD COUNT; Value: 5.74; Range: 4.30-6.10; Units: M/mm3; Status: F Test: HEMOGLOBIN; Value: 16.6; Range: 14.0-18.0; Units: g/dl; Status: F Test: HEMATOCRIT; Value: 48.5; Range: 42.0-52.0; Units: %; Status: F Test: MEAN CORPUSCULAR VOLUME; Value: 84.5; Range: 80.0-96.0; Units: fl; Status: F Test: MEAN CORPUSCULAR HEMOGLOBIN; Value: 28.9; Range: 27.0-33.0; Units: pg; Status: F Test: MEAN CORPUSCULAR HGB CONC; Value: 34.2; Range: 32.0-36.5; Units: g/dl; Status: F Test: RED CELL DISTRIBUTION WIDTH; Value: 14.1; Range: 11.5-14.5; Units: %; Status: F Test: PLATELET COUNT, AUTOMATED; Value: 249; Range: 150-450; Units: k/mm3; Status: F Test: NEUTROPHILS %; Value: 86.3; Range: 36.0-66.0; Abnormal: Above high normal; Units: %; Status: F Test: LYMPH %; Value: 4.8; Range: 24.0-44.0; Abnormal: Below low normal; Units: %; Status: F Test: MONO %; Value: 4.7; Range: 0.0-5.0; Units: %; Status: F Test: EOS %; Value: 2.1; Range: 0.0-3.0; Units: %; Status: F Test: BASO %; Value: 1.1; Range: 0.0-1.0; Abnormal: Above high normal; Units: %; Status: F Test: LARGE UNSTAINED CELL %; Value: 0.9; Range: 0.0-4.0; Units: %; Status: F Test: NEUTROPHILS #; Value: 15.4; Range: 1.8-7.7; Abnormal: Above high normal; Units: K/mm3; Status: F Test: LYMPH #; Value: 1.0; Range: 1.5-4.5; Abnormal: Below low normal; Units: K/mm3; Status: F Test: MONO #; Value: 0.8; Range: 0.0-0.8; Units: K/mm3; Status: F Test: EOS #; Value: 0.4; Range: 0.0-0.50; Units: K/mm3; Status: F Test: BASO #; Value: 0.2; Range: 0.0-0.2; Units: K/mm3; Status: F Test: LARGE UNSTAINED CELL #; Value: 0.2; Range: 0.0-0.4; Units: K/mm3; Status: F Lab Order: Urinalysis; SPEC'M 07/14/16 00:29 Test: APPEARANCE, URINE; Value: CLEAR; Range: CLEAR; Status: F Test: COLOR, URINE; Value: YELLOW; Range: YELLOW; Status: F Test: PH,URINE; Value: 5.0; Range: 5.0-9.0; Units: UNITS; Status: F Test: SPECIFIC GRAVITY URINE AUTO; Value: 1.027; Range: 1.002-1.035; Status: F Test: PROTEIN, URINE AUTO; Value: 1+; Range: NEGATIVE; Abnormal: Above high normal; Units: mg/dL; Status: F Test: GLUCOSE, URINE (UA) AUTO; Value: NEGATIVE; Range: NEGATIVE; Units: mg/dL; Status: F Test: KETONE, URINE AUTO; Value: TRACE; Range: NEGATIVE; Abnormal: Above high normal; Units: mg/dL; Status: F Test: UROBILINOGEN, URINE AUTO; Value: 0.2; Range: 0.0-2.0; Units: mg/dL; Status: F Test: BILIRUBIN, URINE AUTO; Value: NEGATIVE; Range: NEGATIVE; Status: F Test: NITRITE, URINE AUTO; Value: NEGATIVE; Range: NEGATIVE; Status: F Test: LEUKOCYTE ESTERASE, URINE AUTO; Value: NEGATIVE; Range: NEGATIVE; Status: F Test: BLOOD, URINE BLOOD; Value: NEGATIVE; Range: NEGATIVE; Status: F Test: WBC, URINE AUTO; Value: 1; Range: 0-3; Units: /HPF; Status: F Test: RBC, URINE AUTO; Value: 1; Range: 0-3; Units: /HPF; Status: F Test: BACTERIA, URINE AUTO; Value: NEGATIVE; Range: NEGATIVE; Status: F Test: SQUAMOUS EPITHELIAL CELL UR AU; Value: 0; Range: 0-6; Units: /HPF; Status: F Test: MUCUS, URINE; Value: SMALL; Range: NEGATIVE; Status: F Test: HYALINE CAST, URINE AUTO; Value: 0; Range: 0-1; Units: /LPF; Status: F Lab Order: Liver Profile; SPEC'M 07/13/16 23:11 Test: AST/SGOT; Value: 20; Range: 15-37; Units: U/L; Status: F Test: ALT/SGPT; Value: 24; Range: 12-78; Units: U/L; Status: F Test: ALKALINE PHOSPHATASE; Value: 79; Range: 45-117; Units: U/L; Status: F Test: BILIRUBIN,TOTAL; Value: 0.5; Range: 0.2-1.0; Units: MG/DL; Status: F Test: BILIRUBIN,DIRECT; Value: 0.2; Range: 0.0-0.2; Units: MG/DL; Status: F Test: TOTAL PROTEIN; Value: 7.5; Range: 6.4-8.2; Units: GM/DL; Status: F Test: ALBUMIN; Value: 3.7; Range: 3.2-5.2; Units: GM/DL; Status: F Test: ALBUMIN/GLOBULIN RATIO; Value: 0.97; Range: 1.00-1.93; Abnormal: Below low normal; Status: F Lab Order: Lipase; SPEC'M 07/13/16 23:11 Test: LIPASE; Value: 135; Range: 73-393; Units: U/L; Status: F Lab Order: Urine Culture; SPEC'M 07/14/16 00:29 Test: URINE CULTURE; Value: URINE CULTURE RESULT NO GROWTH; Status: F Radiology Order: CT ABD & PELVIS W/O CONTRAST Test: CT ABD & PELVIS W/O CONTRAST REASON FOR EXAMINATION: l flank pain l abdominal pain; ; CLINICAL HISTORY: Abdominal pain; TECHNIQUE: CT of the abdomen and pelvis was performed without intravenous contrast by obtaining yvrose; guous CT axial slices from level of the heart to the proximal femoral diaphyses. Multiplanar reformat; s were obtained in the coronal and sagittal projections.; COMPARISON: None; FINDINGS :; LOWER CHEST: The lung bases demonstrate lingular atelectasis otherwise are unremarkable. Heart is nor; mal in size. No pleural or pericardial effusion is seen.; LIVER: The liver is normal in size and contour.; BILIARY SYSTEM: No intrahepatic biliary ductal dilatation is seen. The common duct is normal in calib; er. The gallbladder is unremarkable with no focal or diffuse wall thickening seen. No pericholecystic; fluid is seen. No calcified biliary calculi are identified.; PANCREAS: The pancreas is normal in size, contour and density. No suspicious cystic lesion or ductal; dilatation.; SPLEEN: Normal in size with no suspicious cystic lesion.; ADRENALS: The adrenal glands are unremarkable.; KIDNEYS/URETERS: The kidneys are normal in size. No calcified renal or ureteral calculi are seen. No; suspicious cystic lesion or hydronephrosis. The ureters are not dilated.; URINARY BLADDER: The urinary bladder is unremarkable without calcified stone, wall thickening or dive; rticula seen.; PROSTATE/SEMINAL VESICLES: Prostate measures 3.7 x 4.1 cm. Seminal vesicles unremarkable.; AORTA AND ILIAC ARTERIES: No aneurysmal dilatation of the aorta or iliac arteries is seen.; LYMPH NODES: No enlarged adenopathy. Lower mesentery calcified nodule likely postinflammatory node or; granulomatous.; GASTROINTESTINAL: Stomach, duodenum and bowel normal in caliber with no abnormal dilatation, stenosis; , or wall thickening.; PERITONEUM/RETROPERITONEUM: No ascites or suspicious fluid collection, extraluminal air, or suspiciou; s mass.; ABDOMINAL/PELVIC WALL: No hernia is identified.; OSSEOUS STRUCTURES/SOFT TISSUES: No suspicious osseous lesion, acute fracture, or soft tissue abnorma; lity.; IMPRESSION :; Mild prostatomegaly otherwise no acute intra-abdominal pelvic abnormality identified; ; Radiology Order: EKG-ADULT Test: EKG-ADULT REASON FOR EXAMINATION: Abdomen Pain; Stationary ECG Study; [facility] - ED; ; Test Date: 2016-07-14; Pat Name: STEF LUGO Department:; Room: -; 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 fg 01:43 Discharge Assessment: Patient awake, alert and oriented x 3. No cognitive and/or af2 functional deficits noted. Patient verbalized understanding of disposition instructions. patient administered narcotics - no. The following High Risk Discharge criteria are identified: None. Discharged to home ambulatory. Condition: stable. Discharge instructions given to patient, Instructed on discharge instructions, follow up and referral plans. Demonstrated understanding of instructions, Pt was receptive of discharge instructions/ teaching. CT Study completed. Property :Personal belongings accompany Pt. 01:44 Patient left the ED. af2 Signatures: Dispatcher [employer] EDMS Cyn Dowell, Reg Reg gb Dean Grady, Turn Out Worker Unit ml3 Mague Mike, SAMPLER OVENS SAMPLER OVENS jade Sheron Ponce, SAMPLER OVENS SAMPLER OVENS rs6 Michelle Purcell,RN RN af2 Maricruz Dalal MD MD fg Stanton, Hillary, Reg Reg hs2 Judit Tse, SAMPLER OVENS SAMPLER OVENS cln Chart Complete YULISA
--- NOTE | 2016-07-16 02:46 | EDDOCDS ---
Physician Documentation [facility] Name: Stef Lugo Age: 45 yrs Sex: Male : 1970 Arrival Date: 07/13/2016 Time: 22:37 Bed 18 Private MD: Giorgio Tam H Disposition: 07/14/16 01:12 Discharged to Home/Self Care. Impression: Abdominal and pelvic pain. - Condition is Stable. - Discharge Instructions: Abdominal Pain, Adult. - Medication Reconciliation, Local Pharmacy Hours form. - Follow up: Giorgio Tam; When: Call to arrange an appointment; Reason: Continuance of care. - Problem is new. - Symptoms have improved. - Notes: As discussed, [facility] with [facility] 12-24 hours for repeat abdominal examination. Though your CT and lab work were not indiciative that you need emergency surgery, we want to make sure you have close follow up for your condition. Please follow up for a repeat urinalysis as we found you have protein in your urine. Hope you are feeling better soon. Historical: - Allergies: Indomethacin (Vomit, Hives); cortisone injection (Hives, Anaphylaxis); PENICILLINS (Hives, Anaphylaxis); - Home Meds: 1. albuterol sulfate 90 mcg/actuation Inhl HFAA every 4 hours 2. albuterol sulfate 2.5 mg /3 mL (0.083 %) Nebulizer nebu 3 mL every 6 hours 3. allopurinol 300 mg Oral tab once daily 4. amlodipine 10 mg Oral tab 1 tab once daily 5. beclomethasone dipropionate 80 mcg/actuation inhalation aero 2 puffs 2 times per day 6. Calcium + Vitamin D Oral 600 mg daily 7. epinephrine 0.3 mg/0.3 mL (1:1,000) injection atIn 8. tiotropium bromide inhalation 2 puffs once daily 9. spironolactone 100 mg Oral tab 1 tab once daily 10. Symbicort 160-4.5 mcg/actuation inhalation HFAA 2 puffs 2 times per day 11. prednisone 2.5 mg Oral tab 1 tab once daily 12. potassium chloride 10 mEq Oral cpER 1 cap once daily 13. [place] 5-325 mg Oral tab every 4 hours 14. montelukast 10 mg oral tab once daily 15. loratadine 10 mg Oral tab - PMHx: Asthma; Gout; Hypertension; - PSHx: Tonsillectomy; right shoulder surgery; left knee bilateral release of patella; - Social history: Smoking status: Chewing Tobacco No barriers to communication noted, The patient speaks fluent Greenlandic. - Family history: Not pertinent. - : The pt / caregiver states he / she is not on anticoagulants. Home medication list is obtained from the patient. - Exposure Risk Screening:: None identified. Vital Signs: 07/13 22:43 BP 154 / 98 RA Sitting (auto/reg); Pulse 121 MON; Resp 24 S; Temp 98.8(TE); Pulse Ox cln 95% on R/A; Weight 140.61 kg / 309.99 lbs (R); Height 6 ft. 3 in. (190.50 cm) (R); Pain 03/12; 07/14 01:16 BP 124 / 86; Pulse 107; Resp 20; Temp 98.9(TE); Pulse Ox 95% on R/A; Pain 07/12; jade 07/13 22:43 Body Mass Index 38.75 (140.61 kg, 190.50 cm) cln MDM: 07/13 22:48 Dilaudid - HYDROmorphone 1 mg IVP once ordered. fg 22:48 Ondansetron 4 mg IVP once ordered. fg 22:48 IV Saline Lock ordered. fg 22:49 Basic Metabolic Profile Ordered. EDMS 22:49 CBC with Diff Ordered. EDMS 22:49 Urinalysis Ordered. EDMS 22:50 Liver Profile Ordered. EDMS 22:50 Lipase Ordered. EDMS 22:57 NS 0.9% 1000 ml IV at bolus once ordered. fg 22:57 Urine Culture Ordered. EDMS 23:09 CT ABD & PELVIS W/O CONTRAST Ordered. EDMS 07/14 00:08 ketorolac 30 mg IVP once ordered. fg 00:41 Financial registration complete. hs2 01:15 Cyclobenzaprine 10 mg PO once ordered. fg 01:23 ECG WITH READING ER PHYS+CARDIAG ordered. EDMS 01:23 [facility] Payment Agreement was scanned into [employer] and attached to record. hs2 10:49 T-Sheet-- Draft Copy was scanned into [employer] and attached to record. gb 10:50 ECG/EKG was scanned into [employer] and attached to record. gb 10:50 Radiology Report was scanned into [employer] and attached to record. gb Administered Medications: 07/13 23:02 Drug: Dilaudid - HYDROmorphone 1 mg [hydromorphone 1 mg/mL injection syringe (1 mL)] af2 Route: IVP; Site: left hand; 23:02 Drug: Ondansetron 4 mg [ondansetron HCl 2 mg/mL intravenous solution (2 mL)] Route: af2 IVP; Site: left hand; 23:02 Drug: NS 0.9% 1000 ml [sodium chloride 0.9 % intravenous solution] Route: IV; Rate: af2 bolus; Site: left hand; 07/14 00:35 Drug: ketorolac 30 mg [ketorolac 30 mg/mL (1 mL) injection solution (1 mL)] Route: IVP; af2 Site: left hand; 01:41 Drug: Cyclobenzaprine 10 mg [cyclobenzaprine 10 mg tablet (1 tabs)] Route: PO; af2 Signatures: Dispatcher [employer] EDMS Cyn Dowell, Reg Reg gb Michelle Purcell RN RN af2 Maricruz Dalal MD MD Ita Medley, Reg Reg hs2 The chart was reviewed and I authenticate all verbal orders and agree with the evaluation and treatment provided.Corrections: (The following items were deleted from the chart) 07/13 23:09 22:49 CT Abdomen without contrast+CT ordered. EDLA EDLA Attachments: 07/14 01:23 [facility] [place] Payment Agreement hs2 10:49 T-Sheet-- Draft Copy gb 10:50 ECG/EKG gb Chart Complete MTDD
== END 2016-07-14 01:44 | disposition home or self-care (01) ==
LOC: M ED 22:37
DX: R10.9 Unspecified abdominal pain (principal); J45.909 Unspecified asthma, uncomplicated; M10.9 Gout, unspecified; I10 Essential (primary) hypertension; Z72.0 Tobacco use; Z79.899 Other long term (current) drug therapy; Z88.0 Allergy status to penicillin; Z88.8 Allergy status to other drugs, medicaments and biological substances

== ENCOUNTER 2017-01-06 15:29 | Emergency (ER) | payer OTHER ==
[~2017-01-06] VITALS: Ht 190.5 cm; Wt 154.3 kg
[2017-01-06] MEDS ORDERED: CLAR10CA3 PO (15:50)
[2017-01-06] MEDS ORDERED: RANI150C PO (15:50)
[2017-01-06] MEDS ORDERED: QVAR1AER2 IN (15:50)
[2017-01-06] MEDS ORDERED: PANT20TA PO (15:50)
[2017-01-06] MEDS ORDERED: PRED10PA PO (15:50)
[2017-01-06] MEDS ORDERED: OXYC-517 (15:50)
[2017-01-06] MEDS ORDERED: CALC1TAB30 PO (15:50)
[2017-01-06] MEDS ORDERED: K-TA10TA2 PO (15:50)
[2017-01-06] MEDS ORDERED: ALBU1.25 INH (15:50)
[2017-01-06] MEDS ORDERED: ALDA50TA2 PO (15:50)
[2017-01-06] MEDS ORDERED: SYMB16INH INH (15:50)
[2017-01-06] MEDS ORDERED: PANT40TA2 PO (15:50)
[2017-01-06] MEDS ORDERED: BACL10TA2 PO (15:50)
[2017-01-06] MEDS ORDERED: LIDO1OIN2 (15:50)
[2017-01-06] MEDS ORDERED: ALLO15TA PO (15:50)
[2017-01-06] MEDS ORDERED: SPIR1CAP INH (15:50)
[2017-01-06] MEDS ORDERED: COLC1CAP PO (15:50)
[2017-01-06] MEDS ORDERED: EPIN0.3I6 IJ (15:50)
[2017-01-06] MEDS ORDERED: AMLO10TA2 PO (15:50)
[2017-01-06] MEDS ORDERED: SING5CHW23 PO (15:50)
[2017-01-06] MEDS ORDERED: OXYC-517 PO (15:50)
[2017-01-06 16:45] LABS: MEAN CORPUSCULAR HEMOGLOBIN 28.1 pg (27.0-33.0); MEAN CORPUSCULAR HGB CONC 34.3 g/dl (32.0-36.5); MEAN CORPUSCULAR VOLUME 81.7 fl (80.0-96.0); RED CELL DISTRIBUTION WIDTH 14.9 % (11.5-14.5); WHITE BLOOD COUNT 13.7 K/mm3 (4.0-10.0)
[2017-01-06] MEDS ORDERED: COLA100C5 PO (17:15)
[2017-01-06 17:36] VITALS: BP 124/68
== END 2017-01-06 17:36 | disposition home or self-care (01) ==
LOC: M ED 15:29
DX: K64.4 Residual hemorrhoidal skin tags (principal); K58.9 Irritable bowel syndrome, unspecified; J45.909 Unspecified asthma, uncomplicated; I10 Essential (primary) hypertension

== ENCOUNTER → 2017-08-17 | Outpatient (REF) | payer OTHER | LOC: M LAB REF 15:39 | DX: H01.025 Squamous blepharitis left lower eyelid (principal); H01.022 Squamous blepharitis right lower eyelid; H01.021 Squamous blepharitis right upper eyelid | CPT/HCPCS: 87205 ==

== ENCOUNTER 2018-11-20 07:08 | Emergency (ER) | payer MEDICARE, MEDICAID ==
[~2018-11-20] VITALS: Ht 190.5 cm; Wt 165.2 kg
[~2018-11-20 07:08] MED LIST: ALBU1.25 INH; ALDA50TA2 PO; ALLO300T2 PO; AMLO10TA5 PO; BACL10TA2 PO; CALC1TAB30 PO; CLAR10CA3 PO; COLA100C5 PO; COLC1CAP PO; EPIN0.3I11 IJ; K-TA10TA2 PO; LIDO1OIN2; OXYC-517; OXYC-517 PO; PANT20TA2 PO; PANT40TA3 PO; PRED10PA PO; QVAR80AE10 IN; RANI150C PO; SING5CHW23 PO; SPIR1CAP INH; SYMB16INH INH
[2018-11-20] MEDS ORDERED: SPIR50TA4 PO (07:31)
[2018-11-20] MEDS ORDERED: NORT10CA2 PO (07:31)
[2018-11-20] MEDS ORDERED: TRAM50TA2 PO (07:31)
[2018-11-20] MEDS ORDERED: NEUR600T PO (07:31)
[2018-11-20 08:05] LABS: BASO # 0.1 10^3/uL (0.0-0.2); BASO % 0.3 % (0.0-1.0); EOS # 0.1 10^3/uL (0.0-0.50); EOS % 0.4 % (0.0-3.0); HEMATOCRIT 42.8 % (42.0-52.0); HEMOGLOBIN 14.3 g/dl (13.5-17.5); LYMPH # 2.8 10^3/uL (1.5-4.5); LYMPH % 15.6 % (24.0-44.0); MEAN CORPUSCULAR HEMOGLOBIN 28.1 pg (27.0-33.0); MEAN CORPUSCULAR HGB CONC 33.4 g/dl (32.0-36.5); MEAN CORPUSCULAR VOLUME 84.3 fl (80.0-96.0); MONO # 1.5 10^3/uL (0.0-0.8); MONO % 8.1 % (0.0-5.0); NEUTROPHILS # 13.6 10^3/uL (1.8-7.7); NEUTROPHILS % 74.9 % (36.0-66.0); PLATELET COUNT, AUTOMATED 305 10^3/uL (150-450); RED BLOOD COUNT 5.08 10^6/uL (4.30-6.10); WHITE BLOOD COUNT 18.2 10^3/uL (4.0-10.0)
[2018-11-20 08:29] LABS: BLOOD UREA NITROGEN 20 MG/DL (7-18); C REACTIVE PROTEIN QUANTITATIV 0.38 MG/DL (0.00-0.30); CALCIUM LEVEL 8.9 MG/DL (8.5-10.1); CARBON DIOXIDE LEVEL 26 MEQ/L (21-32); CHLORIDE LEVEL 103 MEQ/L (98-107); CREATININE FOR GFR 1.27 MG/DL (0.70-1.30); GLOMERULAR FILTRATION RATE > 60.0 (>60); GLUCOSE, FASTING 95 MG/DL (70-100); POTASSIUM SERUM 3.6 MEQ/L (3.5-5.1); SODIUM LEVEL 140 MEQ/L (136-145); URIC ACID 5.2 MG/DL (3.5-7.2)
[2018-11-20 08:44] LABS: ERYTHROCYTE SEDIMENTATION RATE 30 mm/hr (0-15)
--- NOTE | 2018-11-20 08:50 | REP ---
LEFT KNEE FIVE VIEWS: HISTORY: Pain. There is no acute fracture or dislocation. There is minimal narrowing of the medial knee joint space. The lateral knee joint space and patellofemoral joint space are normal in appearance. Osteophytes are present on the patella. Calcification is present lateral to the knee joint. This represents ligamentous or tendon calcification. IMPRESSION: Degenerative change as described above. Electronically Signed by Giorgio Clay MD 11/20/2018 08:52 A
--- NOTE | 2018-11-20 08:50 | REP ---
Left lower extremity Duplex Doppler venous ultrasound: Real time compression and duplex Doppler interrogation of the left lower extremity deep venous system is performed. The left common femoral, superficial femoral and popliteal veins are fully compressible with transducer pressure and demonstrate normal spontaneous and phasic flow, without evidence of deep venous thrombosis. Impression: No evidence of deep venous thrombosis of the left lower extremity femoral popliteal venous system. Electronically Signed by Anselmo Fuentes MD 11/20/2018 08:42 A
[2018-11-20 09:50] VITALS: BP 167/106
[2018-11-20] MEDS ORDERED: VOLT1GEL15 TOP (09:57)
[2018-11-22 00:07] LABS: Lyme Disease IgG/IgM Antibodie <0.91 ISR (0.00-0.90); Lyme Disease IgM Ab Quantitati <0.80 index (0.00-0.79)
== END 2018-11-20 10:04 | disposition home or self-care (01) ==
LOC: M ED 07:08
DX: M17.12 Unilateral primary osteoarthritis, left knee (principal); M25.762 Osteophyte, left knee; Z79.899 Other long term (current) drug therapy; Z79.51 Long term (current) use of inhaled steroids; Z88.0 Allergy status to penicillin; Z88.8 Allergy status to other drugs, medicaments and biological substances

== ENCOUNTER 2020-05-21 20:50 | Emergency (ER) | payer MEDICARE, MEDICAID, OTHER ==
[~2020-05-21] VITALS: Ht 188 cm; Wt 165.6 kg
[~2020-05-21 20:50] MED LIST changes: -AMLO10TA5 PO; +AMLO1TAB25 PO; +NEUR600T PO; +NORT10CA2 PO; -PANT20TA2 PO; +PANT20TA6 PO; +PANT40TA29 PO; -PANT40TA3 PO; +SPIR50TA4 PO; +TRAM50TA2 PO; +VOLT1GEL15 TOP
[2020-05-22] MEDS ORDERED: MORPHINE 4 MG/ML 1ML VIAL/SYRINGE (J2270) IV ONE
[2020-05-22] MEDS ORDERED: NS 1,000 ML IV ONE
[2020-05-22 00:11] LABS: BASO # 0.1 10^3/uL (0.0-0.2); BASO % 0.3 % (0.0-1.0); EOS # 0.1 10^3/uL (0.0-0.5); EOS % 0.4 % (0.0-3.0); HEMATOCRIT 42.8 % (42.0-52.0); LYMPH % 18.8 % (24.0-44.0); MEAN CORPUSCULAR HGB CONC 32.7 g/dl (32.0-36.5); MEAN CORPUSCULAR VOLUME 85.6 fl (80.0-96.0); MONO # 1.2 10^3/uL (0.0-0.8); MONO % 7.8 % (0.0-5.0); NEUTROPHILS # 11.3 10^3/uL (1.5-8.5); NEUTROPHILS % 71.4 % (36.0-66.0); PLATELET COUNT, AUTOMATED 313 10^3/uL (150-450); WHITE BLOOD COUNT 15.9 10^3/uL (4.0-10.0)
[2020-05-22 00:28] LABS: PROTHROMBIN TIME 13.4 SECONDS (12.5-14.3)
[2020-05-22 00:29] LABS: PARTIAL THROMBOPLASTIN TIME 30.3 SECONDS (24.2-38.5)
[2020-05-22 00:31] LABS: BILIRUBIN, URINE MANUAL OBSCURED (NEGATIVE); GLUCOSE, URINE (UA) MANUAL OBSCURED mg/dL (NEGATIVE); KETONE, URINE MANUAL OBSCURED mg/dL (NEGATIVE); UROBILINOGEN, URINE MANUAL OBSCURED mg/dl (NORMAL)
[2020-05-22 00:40] LABS: ALBUMIN 3.3 GM/DL (3.2-5.2); BILIRUBIN,DIRECT 0.1 MG/DL (0.0-0.2); BILIRUBIN,TOTAL 0.7 MG/DL (0.2-1.0); C REACTIVE PROTEIN QUANTITATIV 3.27 MG/DL (0.00-0.30); RBC, URINE TNTC /hpf (0-3); SQUAMOUS EPITHELIAL CELL URINE SMALL AMOUNT /hpf (SMALL AMT); TOTAL PROTEIN 7.2 GM/DL (6.4-8.2)
[2020-05-22 00:42] LABS: BACTERIA, URINE MOD AMOUNT; HYALINE CAST, URINE NONE SEEN /lpf (0-1)
[2020-05-22] MEDS ORDERED: ISOVUE-370 76% 100ML VIAL As Ordered ONE (00:49)
[2020-05-22 01:02] LABS: ERYTHROCYTE SEDIMENTATION RATE 57 mm/hr (0-15)
--- NOTE | 2020-05-22 01:11 | REPVR ---
PROCEDURE INFORMATION: Exam: XR Chest, 2 Views Exam date and time: 05/22/2020 12:19 AM Age: 49 years old Clinical indication: Other: Recent surg; Additional info: Recent surgery, wheezing TECHNIQUE: Imaging protocol: XR of the chest Views: 2 views. COMPARISON: CT ABD PELVIS W/O CONTRAST 07/13/2016 11:12 PM FINDINGS: Lungs: Unremarkable. No consolidation. Pleural space: Unremarkable. No pleural effusion. No pneumothorax. Heart/Mediastinum: Unremarkable. No cardiomegaly. Bones/joints: Status post right rotator cuff surgery. Status post anterior cervical fusion. IMPRESSION: No acute infiltrate. Electronically signed by: Nik Wu On 05/22/2020 01:10:41 AM
--- NOTE | 2020-05-22 01:19 | REPVR ---
PROCEDURE INFORMATION: Exam: CT Abdomen And Pelvis With Contrast Exam date and time: 05/21/2020 11:57 PM Age: 49 years old Clinical indication: Abdominal pain; Localized; Lower; Prior surgery; Surgery date: <1 month; Surgery type: Prostatectomy; Additional info: 6 days postop prostectomy, lower abd pain, gross hematuria TECHNIQUE: Imaging protocol: Computed tomography of the abdomen and pelvis with intravenous contrast. Radiation optimization: All CT scans at this facility use at least one of these dose optimization techniques: automated exposure control; mA and/or kV adjustment per patient size (includes targeted exams where dose is matched to clinical indication); or iterative reconstruction. Contrast material: ISO; Contrast volume: 100 ml; Contrast route: INTRAVENOUS (IV); COMPARISON: CT ABD PELVIS W/O CONTRAST 07/13/2016 11:12 PM FINDINGS: Lungs: Mild bronchial mucous plugging in the lower lobes. Liver: Normal. No mass. Gallbladder and bile ducts: Tiny gallstone in the gallbladder. Galbladder wall thickening. No biliary ductal dilatation. Pancreas: Normal. No ductal dilation. Spleen: Normal. No splenomegaly. Adrenal glands: Normal. No mass. Kidneys and ureters: Benign-appearing cyst in the posterior midpole of the right kidney. No hydronephrosis bilaterally. Stomach and bowel: Moderate stool in the colon. No abnormal bowel dilatation. No abnormal bowel wall thickening. Appendix: Appendix is normal. Intraperitoneal space: Trace free fluid in the pelvis. Small free air in the pelvis. Ovoid lesion medial to the left external iliac vessels without rim enhancement measuring 3.3 x 5.2 x 4.3 cm. Vasculature: Moderate atherosclerotic disease. No aortic aneurysm. Lymph nodes: Unremarkable. No enlarged lymph nodes. Urinary bladder: There is a Goodman catheter in the bladder. Bladder is decompressed and diffusely thickened. Reproductive: Status post prostatectomy. Extraperitoneal space: Mild presacral edema. Bones/joints: Mild degenerative spine. No acute fracture. Soft tissues: Postsurgical changes in the ventral abdomen. IMPRESSION: 1. Status post prostatectomy. 2. Small free air in the pelvis. Consistent with postop changes. Bowel perforation cannot be excluded. 3. Trace free fluid in the pelvis. Consistent with postop changes. 4. Ovoid lesion medial to the left external iliac vessels without rim enhancement. Postop changes versus developing abscess versus neoplasm. 5. Bladder is decompressed and diffusely thickened. Suspicious for cystitis. 6. Benign-appearing cyst in the right kidney. No follow-up is necessary. 7. Additional findings as described. COMMENTS: Consistent with the [employer]'s Incidental Findings Committee white paper (J Am Jodi Radiol 2018): Any incidental renal lesion less than 1 cm or classified as too small to characterize, or any incidental cystic renal lesion characterized as simple-appearing, is likely benign. No follow-up imaging is recommended for these lesions per consensus recommendations based on imaging criteria. Electronically signed by: Nik Wu On 05/22/2020 01:19:05 AM
[2020-05-22] MEDS ORDERED: LevoFLOXacin IV 750 MG in IV 1 EA IV ONE (02:45)
[2020-05-22] MEDS ORDERED: LEVO750T14 PO (02:56)
[2020-05-22 04:25] VITALS: BP 135/80
--- NOTE | 2020-05-23 17:01 | ED PDOC ---
Post-Departure Follow-Up dr foster faxed formal report of ct abd/p for fu Bren Rodriguez MD May 23, 2020 17:01
== END 2020-05-22 04:30 | disposition home or self-care (01) ==
LOC: M ED 20:50
DX: T83.511A Infection and inflammatory reaction due to indwelling urethral catheter, initial encounter (principal); R10.30 Lower abdominal pain, unspecified; C61 Malignant neoplasm of prostate; Z90.79 Acquired absence of other genital organ(s); I10 Essential (primary) hypertension; J45.909 Unspecified asthma, uncomplicated; K21.9 Gastro-esophageal reflux disease without esophagitis; K58.9 Irritable bowel syndrome, unspecified; Z79.899 Other long term (current) drug therapy; Z88.0 Allergy status to penicillin; Z88.8 Allergy status to other drugs, medicaments and biological substances
CPT/HCPCS: 71046; 74177; 80047; 80076; 81000; 83690; 85025; 85610; 85652; 85730; 86140; 87088; 87186; 96361; 96365; 96375; 99284; J1956; J2270; Q9967

== ENCOUNTER → 2020-07-22 | Outpatient (CLI) | payer OTHER ==
[~2020-07-22] MED LIST changes: +LEVO750T14 PO
--- NOTE | 2020-07-23 15:14 | SLEEPCENT ---
DATE: 07/22/2020 ORDERED BY: Dr. Tam, [facility] Nocturnal polysomnography was performed for evaluation of sleep physiology in this patient with severe obesity and concern for the obesity hypoventilation syndrome. There was 6 hours and 9 minutes of data reviewed. There was only 75.5 minutes of sleep identified. Sleep latency was prolonged at 34.5 minutes. REM sleep was not achieved. Sleep architecture showed poor progression. Overall sleep efficiency was only 21.3%. The patient's electrocardiogram showed a sinus rhythm with an average heart rate of 80 beats per minute. Rate ranged 74-98. EEG showed coarsening in background with alpha intrusion. No focal events were appreciated, and there were normal waveforms for wake and sleep. There were no obstructive respiratory events identified of 10 seconds in duration or greater. Snoring was, however, noted throughout the study, and arousals from snoring occurred 3.2 times per hour. No persistent oxygen desaturations were appreciated. There was some activity in the limb leads. Only one train of events. Limb movement arousal index of 10.3. The patient terminated the study early, indicating that he had not taken his pain medications and routinely only sleeps 2 hours due to pain in his back and feet, and because of this pain in his back and feet, he felt the study could not continue. IMPRESSION: Equivocal nocturnal polysomnography with snoring. RECOMMENDATION: If concern persists for the obesity hypoventilation syndrome, an arterial blood gas may be helpful if hypercarbia is demonstrated. Should further assessment of the patient's sleep patterns be needed, it may be helpful for the patient to consume his usual medications prior to testing.
== END ==
LOC: M SLEEP 20:00
PROVIDERS: ATTEND Family Medicine
DX: R06.83 Snoring (principal)

== ENCOUNTER → 2021-05-21 | Outpatient (CLI) | payer OTHER ==
[~2021-05-21] MED LIST changes: +ALLO10TA PO; +DICL20GE TP; +GABA600T4; +LIDO1CRE42 TOP; +QVAR80AE8 IN
== END ==
LOC: M LABSMTC 11:01
PROVIDERS: ATTEND Anesthesiology
DX: Z01.812 Encounter for preprocedural laboratory examination (principal); Z20.822 Contact with and (suspected) exposure to COVID-19

== ENCOUNTER 2021-05-26 10:19 | Day surgery (SDC) | payer OTHER ==
[~2021-05-26] VITALS: Ht 190.5 cm; Wt 151.9 kg
[~2021-05-26 10:19] MED LIST changes: -GABA600T4; +LIDOCAINE 2% 100MG/5ML SDV (FOR ANES.) As Ordered ONE; +NS 1,000 ML IV ONE; +propofoL 200 MG/20 ML VIAL As Ordered ONE
[2021-05-26] MEDS ORDERED: GABA600T4 (10:48)
[2021-05-26] MEDS ORDERED: propofoL 200 MG/20 ML VIAL As Ordered ONE ×2 (12:43→12:50)
[2021-05-26 13:15] VITALS: BP 128/88
== END 2021-05-26 13:20 | disposition home or self-care (01) ==
LOC: M OPP 10:19
PROVIDERS: ATTEND Surgery
DX: K63.5 Polyp of colon (principal); I10 Essential (primary) hypertension; M10.9 Gout, unspecified; R12 Heartburn; M54.50 Low back pain, unspecified; F17.220 Nicotine dependence, chewing tobacco, uncomplicated; R06.83 Snoring; Z85.46 Personal history of malignant neoplasm of prostate; Z86.010 Personal history of colon polyps; Z88.0 Allergy status to penicillin; Z88.1 Allergy status to other antibiotic agents; Z79.899 Other long term (current) drug therapy

== ENCOUNTER 2021-09-21 16:19 | Emergency (ER) | payer OTHER ==
[~2021-09-21] VITALS: Ht 190.5 cm; Wt 156.8 kg
[~2021-09-21 16:19] MED LIST changes: +GABA600T4; -LIDOCAINE 2% 100MG/5ML SDV (FOR ANES.) As Ordered ONE; -NS 1,000 ML IV ONE; -propofoL 200 MG/20 ML VIAL As Ordered ONE
[2021-09-21] MEDS ORDERED: ROSU40TA4 PO (17:11)
[2021-09-21] MEDS ORDERED: FLON1SPR NARES (17:11)
[2021-09-21] MEDS ORDERED: RESCUE (17:11)
[2021-09-21] MEDS ORDERED: FURO20TA2 PO (17:11)
[2021-09-21] MEDS ORDERED: GABA-282 PO ×2 (17:11)
[2021-09-21] MEDS ORDERED: FAMO20TA PO (17:11)
[2021-09-21] MEDS ORDERED: CYCL-707 PO (17:11)
[2021-09-21] MEDS ORDERED: BISO5TAB14 PO (17:11)
[2021-09-21] MEDS ORDERED: SPIR50TA4 PO (17:11)
[2021-09-21] MEDS ORDERED: CELE1CAP7 PO (17:11)
[2021-09-21] MEDS ORDERED: K-TA10TA2 PO (17:11)
[2021-09-21] MEDS ORDERED: NORT50CA PO (17:11)
[2021-09-21] MEDS ORDERED: LOSA50TA28 PO (17:11)
[2021-09-21 17:34] LABS: BASO % 0.6 % (0.0-1.0); EOS % 0.1 % (0.0-3.0); LYMPH # 0.9 10^3/uL (1.5-5.0); LYMPH % 12.2 % (24.0-44.0); MEAN CORPUSCULAR HEMOGLOBIN 28.2 pg (27.0-33.0); MEAN CORPUSCULAR HGB CONC 34.1 g/dl (32.0-36.5); MEAN CORPUSCULAR VOLUME 82.9 fl (80.0-96.0); MONO # 0.3 10^3/uL (0.0-0.8); MONO % 4.4 % (2.0-8.0); NEUTROPHILS # 5.9 10^3/uL (1.5-8.5); NEUTROPHILS % 81.7 % (36.0-66.0); PLATELET COUNT, AUTOMATED 237 10^3/uL (150-450); RED BLOOD COUNT 5.31 10^6/uL (4.30-6.10); WHITE BLOOD COUNT 7.2 10^3/uL (4.0-10.0)
[2021-09-21 18:01] LABS: ALBUMIN 3.7 GM/DL (3.2-5.2); ALT/SGPT 43 U/L (12-78); BILIRUBIN,DIRECT 0.1 MG/DL (0.0-0.2); BILIRUBIN,TOTAL 0.4 MG/DL (0.2-1.0); BLOOD UREA NITROGEN 14 MG/DL (7-18); CALCIUM LEVEL 8.9 MG/DL (8.5-10.1); CARBON DIOXIDE LEVEL 26 MEQ/L (21-32); CHLORIDE LEVEL 105 MEQ/L (98-107); CREATININE FOR GFR 1.16 MG/DL (0.70-1.30); GLOMERULAR FILTRATION RATE > 60.0 (>56); GLUCOSE, FASTING 144 MG/DL (70-100); NT-PRO BNP 19 PG/ML (<125); SODIUM LEVEL 139 MEQ/L (136-145); TOTAL PROTEIN 7.3 GM/DL (6.4-8.2)
[2021-09-21 18:08] LABS: CK-MB VALUE MASS 1.4 NG/ML (<3.6); MB/CK RELATIVE INDEX 0.81 (< OR =4)
[2021-09-21] MEDS ORDERED: NITROGLYCERIN 2% OINT 1 GM *U/D* PKT TOP ONE (18:25)
[2021-09-21 18:37] VITALS: BP 195/115
[2021-09-21] MEDS ORDERED: ISOVUE-370 76% 100ML VIAL As Ordered ONE (19:01)
[2021-09-21 19:31] LABS: CK-MB VALUE MASS 1.4 NG/ML (<3.6); MB/CK RELATIVE INDEX 0.81 (< OR =4)
[2021-09-21] MEDS ORDERED: PRED10TA2 PO (20:08)
[2021-09-21] MEDS ORDERED: methylPREDNISolone 125MG 2ML VIAL IV ONE (20:10)
[2021-09-21] MEDS ORDERED: IPRATROPIUM 0.5MG/ALBUTEROL 2.5MG INH SOL UD 3ML (DUONEB) NEB ONE (20:10)
[2021-09-21 21:00] VITALS: BP 187/99
== END 2021-09-21 21:16 | disposition left against medical advice (07) ==
LOC: M ED 16:19
DX: U07.1 COVID-19 (principal); R79.89 Other specified abnormal findings of blood chemistry; Z53.9 Procedure and treatment not carried out, unspecified reason; I10 Essential (primary) hypertension; J45.909 Unspecified asthma, uncomplicated; Z79.899 Other long term (current) drug therapy; Z88.0 Allergy status to penicillin; Z88.8 Allergy status to other drugs, medicaments and biological substances
CPT/HCPCS: 71045; 71275; 80048; 80076; 82550; 82553; 83880; 84484; 85025; 85379; 87798; 93005; 93041; 93971; 94760; 96374; 99285; J2930; Q9967

== ENCOUNTER → 2021-09-24 | Outpatient (CLI) | payer OTHER ==
[~2021-09-24] MED LIST changes: +BISO5TAB14 PO; +CELE1CAP7 PO; +CYCL-707 PO; +FAMO20TA PO; +FLON1SPR NARES; +FURO20TA2 PO; +GABA-282 PO; +LOSA50TA28 PO; +NORT50CA PO; +PRED10TA2 PO; +RESCUE; +ROSU40TA4 PO
== END ==
LOC: M LAB 12:35
PROVIDERS: ATTEND Family Medicine
DX: R74.8 Abnormal levels of other serum enzymes (principal)

== ENCOUNTER → 2023-12-20 | Outpatient (CLI) | payer OTHER ==
[~2023-12-20] MED LIST changes: -CELE1CAP7 PO; +CELE1CAP99 PO; +ISOVUE-300 61% 100ML VIAL As Ordered ONE; -K-TA10TA2 PO; -LIDO1CRE42 TOP; +LIDO30CR18 TOP; +LIDOCAINE 1% MDV 20ML VIAL As Ordered ONE; +MONT5TAB7 PO; +POTA-165 PO; -ROSU40TA4 PO; +ROSU40TA63 PO; -SING5CHW23 PO; +TRIAMCINOLONE ACETONIDE SUSP 40MG/ML 1ML VIAL As Ordered ONE
== END ==
LOC: M RAD 14:17
PROVIDERS: ATTEND Orthopaedic Surgery
DX: M16.11 Unilateral primary osteoarthritis, right hip (principal)
CPT/HCPCS: 20610; 77002; J3301; Q9967

== ENCOUNTER → 2024-01-30 | Outpatient (CLI) | payer OTHER ==
[~2024-01-30] MED LIST changes: -ISOVUE-300 61% 100ML VIAL As Ordered ONE; -LIDOCAINE 1% MDV 20ML VIAL As Ordered ONE; -TRIAMCINOLONE ACETONIDE SUSP 40MG/ML 1ML VIAL As Ordered ONE
== END ==
LOC: M PLAIMG 10:30
PROVIDERS: ATTEND Orthopaedic Surgery
DX: M25.551 Pain in right hip (principal); M16.11 Unilateral primary osteoarthritis, right hip

== ENCOUNTER → 2024-10-24 | Outpatient (CLI) | payer OTHER ==
[~2024-10-24] MED LIST changes: +GABA-1172 PO; +GABA-1490; -GABA-282 PO; -GABA600T4; -LEVO750T14 PO; +LEVO75TAB PO; -ROSU40TA63 PO; +ROSU40TA81 PO
== END ==
LOC: M RAD 14:09
PROVIDERS: ATTEND Nurse Practitioner Family
DX: M51.362 Other intervertebral disc degeneration, lumbar region with discogenic back pain and lower extremity pain (principal); M17.11 Unilateral primary osteoarthritis, right knee; M16.11 Unilateral primary osteoarthritis, right hip; M47.816 Spondylosis without myelopathy or radiculopathy, lumbar region

== ENCOUNTER → 2025-03-21 | Outpatient (CLI) | payer OTHER ==
[~2025-03-21] MED LIST changes: +ISOVUE-300 61% 100 ML VIAL As Ordered ONE; +LIDOCAINE 1% MDV 20 ML VIAL As Ordered ONE; +methylPREDNISolone SUSP 40 MG/ML 1 ML VIAL As Ordered ONE
== END ==
LOC: M RAD 14:16
PROVIDERS: ATTEND Orthopaedic Surgery
DX: M16.11 Unilateral primary osteoarthritis, right hip (principal)
CPT/HCPCS: 20610; 77002; J0665; J1010; Q9967

== ENCOUNTER → 2025-04-22 | Outpatient (CLI) | payer OTHER ==
[~2025-04-22] MED LIST changes: -ISOVUE-300 61% 100 ML VIAL As Ordered ONE; -LIDOCAINE 1% MDV 20 ML VIAL As Ordered ONE; -methylPREDNISolone SUSP 40 MG/ML 1 ML VIAL As Ordered ONE
== END ==
LOC: M SOG 07:19
PROVIDERS: ATTEND Orthopaedic Surgery
DX: M16.11 Unilateral primary osteoarthritis, right hip (principal)